=== PATIENT | male | born 1990 ===

== ENCOUNTER 2016-04-10 02:58 | Emergency (ER) | payer MEDICAID, OTHER ==
[~2016-04-10] VITALS: Ht 180.3 cm; Wt 79.5 kg
[~2016-04-10 02:58] MED LIST: BUSP15 PO; LEV500 PO; REM15 PO
[2016-04-10 03:06] VITALS: BP 150/95; PULSE 107; RESP 20; O2SAT 100
--- NOTE | 2016-04-10 04:38 | ED.REPORT ---
HPI-Overdose/Alcohol Toxicity Date of Service Apr 10, 2016 ED Provider: Thanh Mitchell MD Patient is a 25 year old male with a history of depression, anxiety with panic attacks, and polysubstance abuse who presents to the ED via EMS complaining of hallucinations after using methamphetamine this evening. The patient states that he heard voices and was seeing things around him. He reports being able to feel and touch items around him that he knew were not real. He saw "flashing lights" and heard his daughter's voice. Patient has previously experienced hallucinations, but tonight what he experienced was more severe than usual. Patient states that the hallucinations are only intermittently present. The patient states that he became paranoid and had an altercation with one of his friends. Patient states that he started "dabbling" in methamphetamine over the past 2-3 weeks. The patient is aware that methamphetamine can cause hallucinations. He denies a history of schizophrenia or schizoaffective disorder. He also reports using heroin 2 weeks ago. He has a history of alcohol and cocaine abuse per ED records. The patient recently moved back to the area and is "couch surfing". Patient also reports bilateral knee pain, but is unsure why his knees are currently hurting him. Nursing Notes Stated Complaint: LIGHT HEADED, NAUSEA Chief Complaint: Substance Abuse Nursing Notes Reviewed: Yes Allergies: Coded Allergies: No Known Allergies (Unverified Allergy, Unknown, 04/10/16) Scheduled Buspirone-Expunged Drug, Do Not Renew! (Buspirone-Expunged Drug, Do Not Renew!) 15 Mg Tablet 30 MG PO BID Levofloxacin-Expunged Drug, Do Not Renew! (Levaquin-Expunged Drug, Do Not Renew! ) 500 Mg Tablet 500 MG PO AM Mirtazapine-Expunged Drug, Do Not Renew! (Remeron-Expunged Drug, Do Not Renew!) 15 Mg Tablet 15 MG PO HS General Time Seen by Provider: 05:04 Chief Complaint Other (methamphetamine abuse and hallucinations) Hx Obtained From: Patient Arrived By: Ambulance Onset Occurred: 1 - 4 hours ago Symptom Duration: Since onset Progression Since Onset: Gradually worsening Severity: Current: No pain currently Severity: Maximum: No pain Recent Healthcare: No recent doctor visit, No recent hospitalization Similar Sx Previous: Yes Past Medical History Past Medical History depression with prior drug overdose anxiety with panic attacks polysubstance abuse Past Surgical History none reported Smoking History Current Some Day Smoker Social History Drug Use: Cocaine, IV drugs, Meth Other Social History: Good social support, Local resident Ambulatory Status Independent Review of Systems Constitutional: Denies: Chills, Fever Psychiatric: Reports: Hallucinations, auditory, Hallucinations, visual, Denies: Depression Complete sys rev & neg: except as marked. Physical Exam Initial Vital Signs Vital Signs (First) Date Time Temp Pulse Resp B/P Pulse Ox O2 Delivery O2 Flow Rate FiO2 04/10/16 03:06 36.7 107 20 150/95 100 Room Air Initial VS: Reviewed, Vital signs abnormal Head / Eyes: Atraumatic, Normocephalic, PERRL ENT: Conjunctiva normal, No scleral icterus Neck: Supple, Full range of motion Skin: Warm, Dry, No cyanosis General/Constitutional: Awake, Alert, No acute distress Respiratory / Chest: Breath sounds NL, Breath sounds = bilat, No respiratory distress, No rales, No rhonchi, No wheezing Cardiovascular: Heart rate NL, Regular rhythm, Heart sounds NL, No murmurs Abdomen: Soft, Non-tender Neurologic: Oriented X3, Speech NL, No motor deficits, No sensory deficits Psychiatric: Affect NL, Mood NL delusional. Discussed auditory, visual, and tactile hallucinations, but does not appear to be experiencing them during time of the interview. Upper Extremity / MS: No swelling, Non-tender Lower Extremity / Pelvis / MS: No swelling, Non-tender, No deformity, Neurologic intact, Vascular intact Interpretation & Diagnostics Interpretation & Diagnostics: Urine Drug Screen: Positive for cocaine, methamphetamine, opiates, phencyclidine, and amphetamines. Lab Results Interpretation Test 04/10/16 05:10 Hold Urine Received (Received) Re-Eval/Medical Decision Med Decision/Clinical Course 25-year-old male with no history of psychosis presents with hallucinations and delusions following use of methamphetamine. He was observed here for several hours and improved dramatically. He will be discharged home with instructions not to use methamphetamine. He is not gravely disabled, suicidal, or homicidal at this time Source of Hx: Old records Re-Evaluation/Progress #1: Time of Eval: 05:13 Patient Status: Condition improved Re-Evaluation/Progress Note: Rechecked the patient, who states that he is no longer experiencing hallucinations. Re-Evaluation/Progress #2: Time of Eval: 06:02 Patient Status: Condition improved Re-Evaluation/Progress Note: Patient understands and agrees with the plan to be discharged home. Discharge instructions and follow-up discussed. All questions were addressed. Return to the ED warnings given. Counseled Regarding: Diagnosis, Need for follow-up, When/why to return to ED Discharge & Departure Impression: Primary Impression: Hallucinations Additional Impression: Methamphetamine abuse )( Condition at Discharge: No danger to self, No danger to others, No suicidal ideation, No homicidal ideation Disposition: Home Discharge Condition All VS Reviewed: Yes Condition: Stable Patient Instructions: Methamphetamine Abuse (ED) Additional Instructions: Your delusions and hallucinations are due to methamphetamine use. Do not use this drug, it literally makes you crazy. Return for further problems. Referrals: Charity Escalante (PCP) Shell Attestation Portions of this note were transcribed by Kaylee Cason. I, Dr. Mitchell personally performed the history, physical exam and medical decision-making; I reviewed and confirmed the accuracy of the information in the transcribed note. Signed by: Shell Koroma, 04/10/2016 0602 copies to: Charity Escalante Howard L MD Apr 10, 2016 04:38 Kaylee Cason Apr 10, 2016 05:17
== END 2016-04-10 05:59 | disposition home or self-care (01) ==
LOC: SED 02:58
DX: R44.0 Auditory hallucinations (principal); F15.10 Other stimulant abuse, uncomplicated; F11.10 Opioid abuse, uncomplicated; F17.200 Nicotine dependence, unspecified, uncomplicated

== ENCOUNTER 2016-04-10 11:15 | Emergency (ER) | payer MEDICAID, OTHER ==
[~2016-04-10] VITALS: Ht 180.3 cm; Wt 86.4 kg
[2016-04-10 11:33] VITALS: BP 157/73; PULSE 102; RESP 24; O2SAT 97
[2016-04-10 13:34] LABS: BASOPHILS % (AUTO) 0.3 % (0-3); EOSINOPHILS % (AUTO) 0.1 % (0-5); Mean Corpuscular Hemoglobin 30.9 pg (27.0-35.0); NEUTROPHILS % (AUTO) 78.1 % (40-74); Platelet Count 361 bil/L (150-400)
[2016-04-10] MEDS ORDERED: hydrOXYzine Pamoate 25 mg Capsule PO ONE (13:35)
--- NOTE | 2016-04-10 14:05 | ED.REPORT ---
HPI-Psychiatric Illness Date of Service Apr 10, 2016 ED Provider: Flynn Mera MD History of Present Illness: Patient is a 25 y.o. M with past history of substance abuse using meth and heroine, depression, suicidal ideation, incarceration. He presents to the ED with his mother from home becuase he was "come off of something" and had bizare behavior, stating that people were reading his mind and he was hearing voices. Patient recently admitted to ED earlier this morning via [facility] for bizare behavior and wandering around town. Patient reports that he was at his friends house and has recently (2-3 weeks ago) started using heroine and meth by inhalation, last night he heard his daughter voice, saw falshing lights outside the window and became very anxious and worried about his daughter and went to look for her. Patient stated he has been hearing voices, people's thoughts, paranoid about being controlled by "our system," an inability to focus. Patient stated he uses meth becuase it makes him feel better and better able to focus and concentrate.He stated that he is currently having cravings to use meth. He endorses depression with suicidal ideation with no active plan. He stated he has been hospitalized in the past for depression and suicidal ideation. Patient denies past history of schizophrenia. He has a history of alcohol and cocaine abuse per ED records. Suicide friends/family one male friend committed suicide in the past 5 years Patient stated he has no access to firearm Patient denies lack of sleep. Nursing Notes Stated Complaint: PSYCHIATRIC Chief Complaint: Substance Abuse Nursing Notes Reviewed: Yes Allergies: Coded Allergies: No Known Allergies (Unverified Allergy, Unknown, 04/10/16) Scheduled Buspirone-Expunged Drug, Do Not Renew! (Buspirone-Expunged Drug, Do Not Renew!) 15 Mg Tablet 30 MG PO BID Levofloxacin-Expunged Drug, Do Not Renew! (Levaquin-Expunged Drug, Do Not Renew! ) 500 Mg Tablet 500 MG PO AM Mirtazapine-Expunged Drug, Do Not Renew! (Remeron-Expunged Drug, Do Not Renew!) 15 Mg Tablet 15 MG PO HS General Time Seen by MD: 13:20 Chief Complaint Bizarre behavior, Depressed, Hallucinations, auditory, Paranoid, Suicidal ideation Hx Obtained From: Patient Onset Occurred: Yesterday Similar Sx Previous: Yes Risk-Psychiatric Illness Suicide Risk Stratification Suicide Risk Factors - Adult: : Alcohol use: Close associate suicide (5 years ago): Prior psych admission: Substance abuseNo: Access to firearms, Family Hx of Suicide, Previous attempt RF Statements: Risk factors reviewed Past Medical History Past Medical History depression with prior drug overdose anxiety with panic attacks polysubstance abuse Past Surgical History none reported Smoking History Current Some Day Smoker Social History Drug Use: Cocaine, Meth Other Social History: Good social support, Local resident Ambulatory Status Independent Review of Systems Basic Review of Systems Eyes: Vision NL, No discharge ENT: Hearing NL, No pain, No nasal congestion, No pharyngeal pain : No dysuria, No frequency Hematologic: No bleeding, No bruising Constitutional: Denies: Chills, Fever Respiratory: Denies: Dyspnea on exertion Cardiovascular: Denies: Chest pain GI: Denies: Abdominal pain, Constipation, Diarrhea, Nausea Psychiatric: Reports: Agitation, Anxiety, Change mental status, Delusional, Depression, Hallucinations, auditory, Suicidal ideation Complete sys rev & neg: except as marked. Physical Exam Initial Vital Signs Vital Signs (First) Date Time Temp Pulse Resp B/P Pulse Ox O2 Delivery O2 Flow Rate FiO2 04/10/16 11:33 36.9 102 24 157/73 97 Room Air Initial VS: Reviewed Head / Eyes: Atraumatic, Normocephalic, PERRL ENT: Mucous membranes moist, Conjunctiva normal, No scleral icterus Neck: Supple, Non-tender, Full range of motion Respiratory: Breath sounds normal, Clear to auscultation, No respiratory distress Cardiovascular: Regular rate & rhythm, Heart sounds normal, Intact distal pulses Abdomen / GI: Soft, Non-tender, No guarding, No rebound, No distention Neurologic: Oriented X3, Speech NL, No motor deficits Psychiatric: Affect NL, Mood NL, Not suicidal, Cognitive function NL Abnormal Mood/Affect: Positive: Anxious, Flight of ideas, Irritable Abnormal Thinking / Perception: Positive: Delusions - paranoid, Hallucinations , auditory, Insight abnormal, Judgment abnormal, Loose associations, Suicidal, no plan, Tangential thinking Head / Eyes: PERRL, EOMI, No nystagmus Pupils: Positive: Dilated L, Dilated R Respiratory / Chest: Breath sounds NL, Breath sounds = bilat, No respiratory distress Cardiovascular: Heart sounds NL Heart Rate / Rhythm: Positive: Tachycardia Interpretation & Diagnostics Interpretation & Diagnostics: Urine Dip showed trace leukocytes +30 protien, +3 Protein, +2 bilirubin, 250 blood, 250 hemoglobin, + Cocaine, +methamphetamine, + opiates, Urine sent for UA Lab Results Interpretation Result Diagram: 04/10/16 1325 04/10/16 1325 Test 04/10/16 13:25 04/10/16 15:08 White Blood Count 15.0th/mm3 (3.8-10.1) Red Blood Count 4.79mil/mm3 (4.40-5.80) Hemoglobin 14.8g/dL (13.8-17.2) Hematocrit 41.2% (41.0-50.0) Mean Corpuscular Volume 86.0fL (81-100) Mean Corpuscular Hemoglobin 30.9pg (27.0-35.0) Mean Corpuscular Hemoglobin Concent 35.9% (32.0-37.0) Red Cell Distribution Width 11.7% (12.3-15.4) Platelet Count 361bil/L (150-400) Neutrophils (%) (Auto) 78.1% (40-74) Lymphocytes (%) (Auto) 13.2% (14-46) Monocytes (%) (Auto) 8.0% (4-12) Eosinophils (%) (Auto) 0.1% (0-5) Basophils (%) (Auto) 0.3% (0-3) Sodium Level 141mEq/L (134-144) Potassium Level 3.9mEq/L (3.5-5.2) Chloride Level 102mEq/L (97-108) Carbon Dioxide Level 22mmol/L (18-29) Blood Urea Nitrogen 19mg/dL (6-20) Creatinine 1.17mg/dL (0.76-1.27) Estimat Glomerular Filtration Rate 79mL/min (>59) Glucose Level 90mg/dL (60-99) Calcium Level 9.6mg/dL (8.5-10.1) Total Bilirubin 1.0mg/dL (0.0-1.2) Aspartate Amino Transf (AST/SGOT) 22U/L (0-50) Alanine Aminotransferase (ALT/SGPT) 11U/L (0-44) Alkaline Phosphatase 86U/L (25-150) Total Protein 7.7g/dL (6.4-8.4) Albumin 4.5g/dL (3.4-5.0) Hold Ochoa Top Tube Received (Received) Alcohol, Quantitative < 10mg/dL (0-10) Urine Color Yellow (YELLOW) Urine Appearance Clear (CLEAR,HAZY) Urine pH 7.0 (5.0-8.0) Urine Specific [place] 1.020 (1.003-1.035) Urine Protein 30mg/dL (NEG,TRACE) Urine Glucose (UA) Negativemg/dL (NEGATIVE) Urine Ketones 40mg/dL (NEGATIVE) Urine Occult Blood Moderate (NEGATIVE) Urine Nitrite Negative (NEGATIVE) Urine Bilirubin Negative (NEGATIVE) Urine Urobilinogen 2.0mg/dL (NORMAL) Urine Leukocyte Esterase Trace (NEGATIVE) Urine RBC 11-50/hpf (0-2) Urine WBC 0-5/hpf (0-5) Urine Epithelial Cells Occasional/hpf (NONE-MOD) Urine Crystals Oxalic acid crystals (NONE Urine Bacteria Few/hpf (NONE-FEW) Urine Hyaline Casts Occasional/lpf (NONE) Urine Granular Casts None seen (NONE SEEN) Urine Waxy Casts None seen (NONE SEEN) Urine Red Blood Cell Casts None seen (NONE SEEN) Urine White Blood Cell Casts None seen (NONE SEEN) Urine Mucus Present (None Seen) Urine Trichomonas None seen (NONE SEEN) Urine Yeast None (NONE SEEN) Urinalysis Comment Transitional epi Urine Culture Reflexed Indicated Re-Eval/Medical Decision Med Decision/Clinical Course Patient is a 25 y.o. M with recent Meth use, auditory hallucinations and bizzare behavior on physical exam are clearing. Patient continued to show physiologic signs of methamohetamine intoxication during exam. The behavior and hallucinations the patient was exhibiting earlier are due to recent use of methamphetamine. However, given past mental health history he will need close follow up with his PCP and continued care with mental health providers once he is free of narcotic abuse. Patient is aware that use of meth will cause these delusions, hallucinations, and bizare behavior. Medically the patient is stable for discharge. Incidental blood on UA found and patient will need outpatient follow up. Re-Evaluation/Progress : Time of Eval: 14:20 )( Re-Eval Psychiatric: No danger to self, No danger to others, No suicidal ideation, No homicidal ideation Patient Status: Condition improved Re-Evaluation/Progress Note: Patient stated he is feeling better and wants to be released from the hospital. Patient stated that he feels depressed about not knowing where his daughter is but has no plan to commit suicide or desire to hurt himself or others. No complaints of dysuria. Counseled Regarding: Diagnosis, Lab results, Need for follow-up Discharge & Departure Impression: Primary Impression: Methamphetamine abuse Additional Impression: Hallucinations Disposition: Home Discharge Condition All VS Reviewed: Yes Condition: Stable Patient Instructions: Cocaine Abuse (DC), Methamphetamine Abuse (DC), Narcotic Abuse (DC) Additional Instructions: During you visit to [facility] Emergency Department we obtained blood work for infectious markers, hemoglobin levels, and electrolytes. Your symptoms of hallucinations, paranoia, anxiety, are due to your recent use of methamphetamine, heroine, cocaine. To prevent further episodes and damage to your brain and body stopping use of methamphetamine, heroine, cocaine is important to stay healthy and reclaim your life. Please follow up with outpatient substance abuse programs. Return to and Narcotics anonymous for support. Follow up with mental health services and your PCP within one week. All your lab values were within normal limits and your imaging showed no acute processes or abnormalities. Your vital signs were stable and safe for discharge. We will send you home with - Substance abuse abstinence program contacts Please Contact [facility] for their assistance with substance [phone] Mental health resources: Leigha [facility] Do not hesitate to call emergency services or your primary care physician if you experience any of the following. - High unrelenting fevers. - Uncontrolled vomiting. - Severe hypertension. - Syncope or loss of consciousness. - Chest pain or severe shortness of breath. Follow up with your primary care physician in 1 weeks time following your emergency department visit for medication checks and general well-being. Referrals: Charity Escalante (PCP) Attending Statement Sen and examined with Dr Hoyt on 04/10. Agree with above. DEEP HOYT DO Apr 10, 2016 13:31 Flynn Mera MD Apr 10, 2016 18:27
[2016-04-10 15:13] LABS: APPEARANCE,URINE CLEAR (CLEAR,HAZY); COLOR,URINE YELLOW (YELLOW)
[2016-04-10 15:14] LABS: OCCULT BLOOD,URINE MODERATE (NEGATIVE)
[2016-04-10 15:35] VITALS: BP 98/74; PULSE 149; O2SAT 100
[2016-04-10 17:18] VITALS: BP 111/81; PULSE 134; RESP 20; O2SAT 99
== END 2016-04-10 16:02 | disposition home or self-care (01) ==
LOC: SED 11:15
DX: F15.10 Other stimulant abuse, uncomplicated (principal); R44.3 Hallucinations, unspecified; F17.200 Nicotine dependence, unspecified, uncomplicated
CPT/HCPCS: 36415; 80053; 81000; 81002; 85025; 87086; 99285; G0480; Q0177